=== PATIENT | female | born 1965 | race Caucasian/White ===

== ENCOUNTER 2022-10-07 08:30 | Day surgery (SDC) | payer OTHER ==
[~2022-10-07] VITALS: Ht 157.5 cm; Wt 57.7 kg
[~2022-10-07 08:30] MED LIST: SODIUM CHLORIDE 0.9% 1,000 ML ONE
[2022-10-07] MEDS ORDERED: SODIUM CHLORIDE 0.9% 1,000 ML IV ONE (09:00)
== END 2022-10-07 12:25 | disposition home or self-care (01) ==
LOC: SURGERY 08:30
PROVIDERS: ATTEND Internal Medicine Gastroenterology
DX: K62.5 Hemorrhage of anus and rectum (principal); K64.0 First degree hemorrhoids; Z79.899 Other long term (current) drug therapy; Z98.890 Other specified postprocedural states
CPT/HCPCS: 45378; J7030